=== PATIENT | male | born 1940 | race Caucasian/White ===

== ENCOUNTER 2019-09-14 11:22 | Inpatient (IN) ==
--- NOTE | 2019-09-14 11:42 | EKG Report ---
Test Performed on : 09/14/2019 11:29:50 AM Test Reason : CP Blood Pressure : / mmHG Vent. Rate : 104 BPM Atrial Rate : 104 BPM P-R Int : 136 ms QRS Dur : 088 ms QT Int : 354 ms P-R-T Axes : 040 -14 085 degrees QTc Int : 465 ms Sinus tachycardia. Possible Left atrial enlargement Nonspecific ST and T wave abnormality Abnormal ECG When compared with ECG of 22-FEB-2019 12:39, premature ventricular complexes. are no longer present T wave inversion more evident in Lateral leads Unconfirmed Result
[2019-09-14] MEDS ORDERED: ZOFRAN IV ONE (11:47)
[2019-09-14] MEDS ORDERED: DUONEB (A & A) INH ONE (11:47)
[2019-09-14] MEDS ORDERED: LEVAQUIN 750 MG/D5W 750 MG/150 ML IVPB IV ONE (11:47)
[2019-09-14] MEDS ORDERED: NS 1,000 ML IV ONE (11:47)
[2019-09-14] MEDS ORDERED: MORPHINE IV ONE (11:47)
[2019-09-14] MEDS ORDERED: SOLU-MEDROL IV ONE (11:47)
[2019-09-14] MEDS ORDERED: ASPIRIN PO ONE (11:48)
[2019-09-14 12:16] LABS: BASO# 0.03 X1000 (0.0-0.2); BASO% 0.3 % (0.0-0.8); EOS# 0.14 X1000 (0.0-0.7); EOS% 1.3 % (0.0-10.0); HEMATOCRIT 45.7 % (42.0-52.0); LYMPH# 1.39 X1000 (1.2-3.4); LYMPH% 12.7 % (20.5-51.1); MCH 27.7 PG (27-31); MCHC 32.8 g/dL (33-37); MCV 84.3 FL (81-99); MONO# 0.79 X1000 (0.11-0.59); MONO% 7.2 % (1.7-9.3); MPV 10.9 FL (7.4-10.4); NEUT# 8.59 X1000 (1.4-6.5); NEUT% 78.5 % (42.2-75.2); PLT 256 X1000 (130-400); RBC 5.42 XMIL (4.7-6.1); RDW 14.1 % (11.5-14.5); WBC 10.94 X1000 (4.8-10.8)
[2019-09-14 12:23] LABS: INR 1.02; PROTIME 13.5 Seconds (11.0-16.0)
[2019-09-14 12:31] LABS: MAGNESIUM 1.7 mg/dL (1.5-2.7)
[2019-09-14 12:35] LABS: ALB/GLOB RATIO 1.8; ALBUMIN 4.8 g/dL (3.5-5.0); CALCIUM 9.9 mg/dL (8.8-10.2); CREATININE 1.2 mg/dL (0.7-1.2); POTASSIUM 5.1 mmol/L (3.5-5.1); TOTAL BILIRUBIN 0.49 mg/dL (0.20-1.00); TOTAL PROTEIN 7.5 g/dL (6.3-8.3)
[2019-09-14 13:00] LABS: URINE SOURCE CLEAN CATCH
--- NOTE | 2019-09-14 13:00 | Diag Imaging Result Doc PS360 ---
CHEST-2 VIEWS - 09/14/2019 INDICATION: short of breath, left chest wall pain COMPARISON: 02/22/2019 FINDINGS: There is some atypical appearing interstitial or reticulonodular infiltrate in the right upper lobe. This is persistent and perhaps even worse since prior. Heart size is normal. No pneumothorax or pleural effusion. IMPRESSION: Right upper lobe reticulonodular infiltrates suggesting atypical pneumonia. Atypical mycobacteria should BE considered. Electronically signed by Jeffrey Boyce 09/14/2019 12:57 PM
[2019-09-14 13:03] LABS: BILIRUBIN URINE NEGATIVE (NEGATIVE); BLOOD URINE NEGATIVE (NEGATIVE); COLOR YELLOW; GLUCOSE URINE 100 mg/dL (NEGATIVE); KETONE URINE NEGATIVE (NEGATIVE); LEUKOCYTES URINE NEGATIVE (NEGATIVE); NITRITE URINE NEGATIVE (NEGATIVE); PH URINE 5.5; PROTEIN URINE 70 mg/dL (NEGATIVE); SP GRAVITY URINE 1.021; TURBIDITY URINE CLEAR (CLEAR); UROBILINOGEN URINE NORMAL (NORMAL)
[2019-09-14 13:04] LABS: UR EPITHELIAL CELLS <10 /HPF (<10); URINE BACTERIA NEGATIVE /HPF; URINE RBC <10 /HPF (<10); URINE WBC <10 /HPF (<10)
[2019-09-14] MEDS ORDERED: ZOSYN 4.5 GM in NS 100 ML IV ONE (14:34)
[2019-09-14] MEDS ORDERED: LABETALOL IV ONE (14:40)
--- NOTE | 2019-09-14 14:41 | PROVIDER DOCUMENTATION ---
This chart was entered by Mamta Lauren Scribe, acting as scribe for Sage Tinsley MD. HPI-Respiratory General - General Chief Complaint: SEPSIS ALERT - D Stated Complaint: SOB,COUGHING,CHEST HURTS Time Seen by Provider: 09/14/19 11:32 Source: patient, family (daughter) Allergies/Adverse Reactions: Patient Allergies Allergy/AdvReac Type Severity Reaction Status Date / Time No Known Allergies Allergy Verified 02/22/19 11:50 Home Medications: Home Medication List Medication Instructions Recorded Confirmed Last Taken Type Albuterol Sulfate [Proair Hfa] 90 mcg NEB RTQ4H 09/14/19 09/14/19 Unknown History Budesonide/Formoterol Fumarate 1 puff INH BID 09/14/19 09/14/19 Unknown History [Symbicort 160-4.5 Mcg Inhaler] Omeprazole 40 mg PO QHS 09/14/19 09/14/19 Unknown History Sertraline HCl [Zoloft] 100 mg PO QHS 09/14/19 09/14/19 Unknown History - History of Present Illness-Resp Nature of Presenting Problem: Patient is a 78 year old male who presents with bilateral rib pain. States shor tness of breath and cough with rib pain. Reports symptoms started prior to arrival. Daughter states patient is suppose to be on 3 L of oxygen 26/05. Does not report fever. Patient is a poor historian. Quality of Pain: reports: aching Severity in ED: reports: mild Onset/Duration: reports: just prior to arrival Timing: reports: still present Cough Quality/Degree: reports: moderate, productive cough Associated Symptoms: reports: cough, shortness of breath, other (bilateral rib pain) Similar Symptoms Previously?: No Recently seen or treated by another doctor?: No Review of Systems - Adult - REVIEW OF SYSTEMS - ADULT Constitutional: reports: no symptoms reported. denies: chills, fever, fatique Eyes: reports: no symptoms reported Ears, Nose, Mouth & Throat: reports: no symptoms reported Cardiovascular: reports: no symptoms reported Respiratory: reports: see HPI, cough, shortness of breath. denies: wheezing Gastrointestinal: reports: no symptoms reported Genitourinary: reports: no symptoms reported Musculoskeletal: reports: see HPI, other (bilateral rib pain). denies: back pain, neck pain Integumentary: reports: no symptoms reported Neurological: reports: no symptoms reported Psychiatric: reports: no symptoms reported Endocrine: reports: no symptoms reported Hematologic/Lymphatic: reports: no symptoms reported Allergic/Immunologic: reports: no symptoms reported All Other Systems: Reviewed and Negative Past History - Adult - PAST MEDICAL HISTORY-ADULT Review of Records: reports: Old Records Reviewed, Nursing Assessment Review, Medications Reviewed, Social history reviewed & non-contributory. Major Childhood Illnesses: reports: denies history Cardiovascular: reports: hyperlipidemia Respiratory: reports: COPD Gastrointestinal: reports: denies history Obstetrical/Gynecological: reports: denies history Genitourinary: reports: denies history Musculoskeletal: reports: denies history Neurological: reports: denies history Psychiatric: reports: denies history Endocrine/Immune: reports: denies history Other Conditions: reports: denies history - PRIOR SURGERIES/PROCEDURES Surgical/Procedure History: reports: reviewed, not pertinent, tonsillectomy - IMMUNIZATION STATUS Childhood Immunizations: See Nurse Assessment Flu Vaccine: See Nurse Assessment - FAMILY HISTORY Family History: reviewed, not pertinent - SOCIAL HISTORY Smoking: cigarettes (former) Substance Use: denies Physical Exam-General - PHYSICAL EXAM-ADULT Initial Vital Signs Reviewed: Yes - CONSTITUTIONAL General Appearance: alert, no apparent distress. negative: lethargic - HEAD, EARS, NOSE, MOUTH & THROAT HENMT: normocephalic/atraumatic, moist mucous membranes. negative: angioedema - RESPIRATORY Respiratory: chest non-tender, rhonchi (bilateral bases), wheezing (faint expiratory wheeze), increased rate, other (diminished breath sounds bilaterally) . negative: accessory muscle use - CARDIOVASCULAR Cardiovascular: normal peripheral pulses, tachycardia. negative: systolic murmur - GASTROINTESTINAL (ABDOMEN) Abdominal Exam: normal bowel sounds, soft, tenderness (LUQ). negative: guarding, rebound - MUSCULOSKELETAL Extremity: normal inspection. negative: erythema, pedal edema - SKIN Integumentary: normal turgor, mottled (generalized), other (cool to touch). negative: diaphoresis, ecchymosis - NEUROLOGIC Neurologic: grossly normal. negative: aphasia, facial droop - PSYCHIATRIC Psych/Mental Status: normal mood/affect, oriented x 3. negative: anxious Progress - PLAN OF CARE/RESULTS Progress/Plan/Lab Results: Vital Signs - 8 hr 09/14/19 11:29 09/14/19 11:42 09/14/19 11:45 Pulse Rate 105 H 109 H 104 H Respiratory Rate 24 24 28 H Blood Pressure 198/97 241/119 O2 Sat by Pulse Oximetry 95 98 98 09/14/19 11:46 09/14/19 12:00 09/14/19 12:03 Pulse Rate 103 H 97 H 93 H Respiratory Rate 32 H 31 H 20 Blood Pressure O2 Sat by Pulse Oximetry 98 98 96 09/14/19 13:08 09/14/19 13:12 09/14/19 13:15 Pulse Rate 110 H 102 H 104 H Respiratory Rate 18 27 H 21 Blood Pressure 177/118 219/93 213/105 O2 Sat by Pulse Oximetry 97 97 96 09/14/19 13:17 09/14/19 13:30 09/14/19 13:31 Pulse Rate 102 H 100 H 105 H Respiratory Rate 33 H 20 28 H Blood Pressure 213/96 200/132 O2 Sat by Pulse Oximetry 97 97 92 L 09/14/19 13:45 09/14/19 13:46 09/14/19 14:00 Pulse Rate 103 H 103 H 103 H Respiratory Rate 26 H 16 30 H Blood Pressure 201/101 O2 Sat by Pulse Oximetry 98 97 95 09/14/19 14:02 Pulse Rate 103 H Respiratory Rate 30 H Blood Pressure 201/93 O2 Sat by Pulse Oximetry 97 09/14/19 12:42 Influenza Screen - Final Nasopharyngeal Laboratory Results - last 24 hr 09/14/19 09/14/19 09/14/19 12:01 12:01 12:01 WBC 10.94 H RBC 5.42 Hgb 15.0 Hct 45.7 MCV 84.3 MCH 27.7 MCHC 32.8 L RDW Std Deviation 14.1 Plt Count 256 MPV 10.9 H Immature Gran % (Auto) 0.0 Neut % (Auto) 78.5 H Lymph % (Auto) 12.7 L [place] % (Auto) 7.2 Eos % (Auto) 1.3 Baso % (Auto) 0.3 Immature Gran # (Auto) 0.00 Neut # (Auto) 8.59 H Lymph # (Auto) 1.39 Hanson # (Auto) 0.79 H Eos # (Auto) 0.14 Baso # (Auto) 0.03 PT INR PTT (Actin FS) Sodium 139 Potassium 5.1 Chloride 99 Carbon Dioxide 26 Anion Gap 14 BUN 17 Creatinine 1.2 Estimated GFR/1.73 m2 59 BUN/Creatinine Ratio 14 Glucose 184 H Calculated Osmolality 284 Calcium 9.9 Magnesium Total Bilirubin 0.49 AST 23 ALT 19 Alkaline Phosphatase 109 Creatine Kinase 85 Troponin T Fwq-S-Mihduusrqxs Pept Total Protein 7.5 Albumin 4.8 Globulin 2.7 Albumin/Globulin Ratio 1.8 Lipase Plasma Lactate 2.5 H Urine Source Urine Color Urine Turbidity Urine pH Ur Specific [place] Urine Protein Ur Glucose (Stick) Ur Ketones (Stick) Urine Blood Urine Nitrite Urine Bilirubin Urobilinogen Dipstick Urine Leukocytes Urine WBC (Auto) Urine RBC (Auto) U Epithel Cells (Auto) Urine Bacteria (Auto) 09/14/19 09/14/19 09/14/19 12:01 12:01 12:01 WBC RBC Hgb Hct MCV MCH MCHC RDW Std Deviation Plt Count MPV Immature Gran % (Auto) Neut % (Auto) Lymph % (Auto) [place] % (Auto) Eos % (Auto) Baso % (Auto) Immature Gran # (Auto) Neut # (Auto) Lymph # (Auto) [place] # (Auto) Eos # (Auto) Baso # (Auto) PT 13.5 INR 1.02 PTT (Actin FS) 27.0 Sodium Potassium Chloride Carbon Dioxide Anion Gap BUN Creatinine Estimated GFR/1.73 m2 BUN/Creatinine Ratio Glucose Calculated Osmolality Calcium Magnesium 1.7 Total Bilirubin AST ALT Alkaline Phosphatase Creatine Kinase Troponin T 0.030 [id number]-Knvzzvqkdxp Pept Total Protein Albumin Globulin Albumin/Globulin Ratio Lipase 73 H Plasma Lactate Urine Source Urine Color Urine Turbidity Urine pH Ur Specific [place] Urine Protein Ur Glucose (Stick) Ur Ketones (Stick) Urine Blood Urine Nitrite Urine Bilirubin Urobilinogen Dipstick Urine Leukocytes Urine WBC (Auto) Urine RBC (Auto) U Epithel Cells (Auto) Urine Bacteria (Auto) 09/14/19 09/14/19 12:01 12:42 WBC RBC Hgb Hct MCV MCH MCHC RDW Std Deviation Plt Count MPV Immature Gran % (Auto) Neut % (Auto) Lymph % (Auto) [place] % (Auto) Eos % (Auto) Baso % (Auto) Immature Gran # (Auto) Neut # (Auto) Lymph # (Auto) [place] # (Auto) Eos # (Auto) Baso # (Auto) PT INR PTT (Actin FS) Sodium Potassium Chloride Carbon Dioxide Anion Gap BUN Creatinine Estimated GFR/1.73 m2 BUN/Creatinine Ratio Glucose Calculated Osmolality Calcium Magnesium Total Bilirubin AST ALT Alkaline Phosphatase Creatine Kinase Troponin T Fya-U-Pkmuxxgnyqj Pept 22 Total Protein Albumin Globulin Albumin/Globulin Ratio Lipase Plasma Lactate Urine Source CLEAN CATCH Urine Color YELLOW Urine Turbidity CLEAR Urine pH 5.5 Ur Specific [place] 1.021 Urine Protein 70 A Ur Glucose (Stick) 100 A Ur Ketones (Stick) NEGATIVE Urine Blood NEGATIVE Urine Nitrite NEGATIVE Urine Bilirubin NEGATIVE Urobilinogen Dipstick NORMAL Urine Leukocytes NEGATIVE Urine WBC (Auto) <10 Urine RBC (Auto) <10 U Epithel Cells (Auto) <10 Urine Bacteria (Auto) NEGATIVE Orders Category Date Time Status Cardiac Monitoring DIRECTED Care 09/14/19 11:38 Active IV Insertion ORDERED Care 09/14/19 11:38 Completed Notify MD of + Sepsis Screen NOW Care 09/14/19 11:38 Active Notify Physician As Ordered Care 09/14/19 11:38 Active CHEST-2 VIEWS [RAD] Stat Exams 09/14/19 11:47 Completed BLOOD CULTURE [BLDCUL] Stat Lab 09/14/19 12:57 Results CBC WITH DIFF [HEME] Stat Lab 09/14/19 12:01 Completed CK PROFILE [SP CHEM] Stat Lab 09/14/19 12:01 Completed COMPREHENSIVE METABOLIC PANEL [CHEM] Stat Lab 09/14/19 12:01 Completed INFLUENZA SCREEN A/B Stat Lab 09/14/19 12:42 Completed LACTATE, PLASMA [CHEM] Q3H Lab 09/14/19 12:01 Completed LACTATE, PLASMA [CHEM] Q3H Lab 09/14/19 14:45 Uncollected LACTATE, PLASMA [CHEM] Q3H Lab 09/14/19 17:45 Uncollected LIPASE [CHEM] Stat Lab 09/14/19 12:01 Completed MAGNESIUM [CHEM] Stat Lab 09/14/19 12:01 Completed PRO B-NATRIURETIC PEPTIDE Stat Lab 09/14/19 12:01 Completed PROTIME WITH INR [COAG] Stat Lab 09/14/19 12:01 Completed PTT [COAG] Stat Lab 09/14/19 12:01 Completed TROPONIN T Stat Lab 09/14/19 12:01 Completed URINALYSIS W/POSS RFLX CULT [URINALYSIS] Stat Lab 09/14/19 12:42 Completed 0.9% Sodium Chloride Inj [Ns] 1,000 ml Med 09/14/19 11:47 Discontinued IV 999 mls/hr Albuterol 2.5MG/Ipratrop 0.5MG [Duoneb (A & A)] Med 09/14/19 11:47 Disc ontinued 9 ml INH NOW ONE Aspirin Med 09/14/19 11:48 Discontinued 325 mg PO NOW ONE Levofloxacin 750 mg/D5w [Levaquin 750 mg/D5w] Med 09/14/19 11:47 Discontinued 750 mg in 150 ml IV NOW Methylprednisolone Sod Succ [Solu-Medrol] Med 09/14/19 11:47 Discontinued 125 mg IV NOW ONE Morphine Med 09/14/19 11:47 Discontinued 2 mg IV NOW ONE Ondansetron [Zofran] Med 09/14/19 11:47 Discontinued 4 mg IV NOW ONE Piperacillin/Tazobactam [Zosyn] 4.5 gm Med 09/14/19 14:34 Discontinued 0.9% Sodium Chloride Inj [Ns] 100 ml IV NOW Aerosol Treatments Routine Oth 09/14/19 11:47 Completed Aerosol Treatments Stat Oth 09/14/19 11:47 Completed Oxygen Device Stat Oth 09/14/19 11:38 Active EKG [EKG] Stat Ther 09/14/19 11:39 Draft Result Diagrams: 09/14/19 12:01 09/14/19 12:01 - REASSESSMENT Reassessment #1 Time Reassessed: 14:36 Status: improving (Patient has community acquired pneumonia with sepsis, and he has been given duonebs, IV solumedrol, IV levaquin 750mg, IV morphine and zofran. Also given 1 aspirin) - EKG 1 Time of EKG reading by physician:: 11:29 EKG Read and Signed by:: Sage Tinsley EKG Interpretation (*Must complete 3 of following elements*): Abnormal Rate: 104 Rhythm: sinus tachycardia [place]: normal [place] Interval: normal Comments: possible left atrial enlargement; nonspecific ST and T wave abnormality. - XRAY 1 XRAY Study: Chest Impression: See EMR Report (Signed CHEST-2 VIEWS - 09/14/2019 INDICATION: short of breath, left chest wall pain COMPARISON: 02/22/2019 FINDINGS: There is some atypical appearing interstitial or reticulonodular infiltrate in the right upper lobe. This is persistent and perhaps even worse since prior. Heart size is normal. No pneumothorax or pleural effusion. IMPRESSION: Right upper lobe reticulonodular infiltrates suggesting atypical pne umonia. Atypical mycobacteria should BE considered. Electronically signed by Jeffrey Boyce 09/14/2019 12:57 PM 09/14/19 1257 Interpreting Physician: Jeffrey Boyce MD Dictated Date/Time: 09/14/19 1256 cc: Sage Tinsley MD; Jessika Pichardo MD) - CONSULTS/PCP/HOSPITALIST Notification #1 *Consult/PCP/Hospitalist*: KELLIE Wilson paged at 1430 Time Discussed: 14:40 Reason/Comments: admit to [facility] Consult Disposition: Will see in ED Departure - Departure Date of Disposition Decision: 09/14/19 Time of Disposition Decision: 14:37 DIAGNOSIS: Community acquired pneumonia due to Mycoplasma pneumoniae, COPD with exacerbation, Elevated blood pressure, situational Sepsis without acute organ dysfunction Qualifiers: Sepsis type: sepsis due to unspecified organism Qualified Code(s): A41.9 - Sepsis, unspecified organism Chest pain Qualifiers: Chest pain type: chest pain on breathing Qualified Code(s): R07.1 - Chest pain on breathing; R07.81 - Pleurodynia Disposition: ADMITTED INPATIENT 09 Certified Medical Emergency: Emergent Condition: Fair Referrals and Follow-Ups: Jessika Pichardo MD [Primary Care Provider] - - Critical Care Note This patient required my direct & personal management of CC.: Yes Total Time (mins): 38 (evaluation for sepsis/chest pain) Critical Care Statement: This patient required my direct personal management to treat or rule out processes, the absence of which, could potentiallly result in sudden, clinically significant life or limb threatening deterioration. Attestation - Physician/ LENY Attestation Patient care was provided by Advanced Practice Provider:: No The physician spent face to face time with patient:: Yes Advanced Practice Provider documentation review:: Supervising physician onsite and consulted in the evaluation and care of this patient. The physician did have a face to face encounter with the patient. This chart was documented by the indicated scribe, (Mamta Lauren Scribe) and accurately reflects the services I performed and decisions made by me, Sage Tinsley MD, as attested by the provider's signature.
[2019-09-14] MEDS ORDERED: CATAPRES PO ONE (14:57)
[2019-09-14] MEDS ORDERED: TYLENOL PO PRN (16:15)
[2019-09-14] MEDS ORDERED: DUONEB (A & A) INH PRN (16:15)
[2019-09-14] MEDS ORDERED: APRESOLINE IV PRN (16:15)
[2019-09-14] MEDS: DUONEB (A & A) INH SCH ×3 (16:46→23:21)
[2019-09-14] MEDS ORDERED: MORPHINE IV PRN (17:16)
[2019-09-14] MEDS: NS 1,000 ML IV SCH (17:20)
[2019-09-14] MEDS: CATAPRES PO SCH (17:25)
[2019-09-14] MEDS: SYMBICORT 160/4.5 MICROGM INHALER INH SCH (18:56)
--- NOTE | 2019-09-14 19:11 | PROGRESS NOTE ---
DATE: 09/14/2019 ADDENDUM: I have seen and examined Mr. Finn today. He refers to be doing a little better since he got the nebulization. Mr. Finn presented to the emergency room today because of shortness of breath. He was found to be saturating at some point at 92%. He is supposed to be on home 2 oxygen too but has been asked to bump it up to 3 lately. CURRENT PHYSICAL EXAM: remarkable for a barrel chest. Air entry is bilaterally reduced. There is prolonged expiratory phase of respiration with diffuse expiratory wheezing. DIAGNOSTIC STUDIES: His chest x-ray showed right upper lobe reticulonodular infiltrate suggesting atypical pneumonia. Atypical mycobacterial should be considered. ASSESSMENT: 1. Acute on chronic hypoxemic respiratory failure. 2. Acute bronchospasm, most likely due to chronic obstructive pulmonary disease exacerbation. 3. Right upper lobe reticulonodular infiltrate suggesting atypical pneumonia. Atypical mycobacteria has also been suggested to be ruled out. We will get a CT scan to have a better anatomy of the lungs. We will also get a sputum culture and QuantiFERON testing. 4. History of chronic obstructive pulmonary disease on home 2 oxygen and in current exacerbation. 5. Diabetes mellitus on oral hypoglycemic agent. We will check on the A1c and put him on insulin regimen while he is in the hospital. Please refer to the details of the history and physical which has been dictated by the CRIMINALIST in the chart. cc: Ryan Fitzpatrick MD
--- NOTE | 2019-09-14 19:59 | HISTORY AND PHYSICAL ---
PRIMARY CARE PROVIDER: Dr. Jessika Pichardo. CHIEF COMPLAINT: Shortness of breath, coughing, with rib pain. HISTORY OF PRESENT ILLNESS: Mr. Finn is a 78-year-old gentleman, who carries a past medical history of COPD, hypertension, diabetes mellitus, hyperlipidemia, COPD, who came to the ED complaining of bilateral rib pain, shortness of breath and wheezing, and a productive cough, who believes he had some low-grade fever and chills. He reports that it had been ongoing for about 2 weeks, but did not tell his daughter until today. He is supposed to wear 3 L of oxygen at home 26/05. Workup in the ED with a chest x-ray showed an atypical pneumonia. He was in COPD exacerbation with a positive lactate. He was given a liter of fluid bolus, started on IV Levaquin, high-dose steroids and bronchodilators, and continued on supplemental O2. He was also found to be hypertensive. He was given a dose of IV labetalol. We will give him a dose of Klonopin now and place him on IV Apresoline q.4 hours, and watch him closely in PVC overnight. PAST MEDICAL HISTORY: 1. COPD. 2. Hypertension. 3. Hyperlipidemia. 4. Diabetes mellitus. PAST SURGICAL HISTORY: Tonsillectomy. FAMILY HISTORY: Noncontributory. SOCIAL HISTORY: He lives with his daughter. I believe he quit smoking over a year ago. He does have home health and home O2. ALLERGIES: No known drug allergies. HOME MEDICATIONS: Continuing to be compiled. What they have so far is: 1. ProAir. 2. Symbicort. 3. Prilosec. 4. Zoloft. REVIEW OF SYSTEMS: A 12 point review of systems is completely negative except for those mentioned in HPI. PHYSICAL EXAMINATION: VITAL SIGNS: Temperature is 98.3 degrees, heart rate 75, respirations 22, blood pressure initially was 198/200s over 100s/90s. He is 182/76, at 96% on 4 L. GENERAL: Mr. Finn is a pleasant, 78-year-old male who is sitting on the stretcher in no acute distress. States that he is now feeling better. HEENT: Atraumatic, normocephalic. PERRL. NECK: Supple. Trachea midline. CARDIOVASCULAR: S1, S2 appreciated. No murmurs, gallops, or rubs noted. RESPIRATORY: Lung sounds relatively clear bilaterally. Did not appreciate any rales, rhonchi, or wheezes. GI: Soft, nontender, nondistended. Positive bowel sounds 4 quads.. EXTREMITIES: Lower extremities were negative for edema. NEUROLOGIC: No focal deficits noted. DIAGNOSTIC DATA: Chest x-ray showed a right upper lobe infiltrate suggestive of an atypical pneumonia. LABORATORY DATA: White count of 10, hemoglobin and hematocrit of 15 and 45, platelet count of 256,000. Sodium 139, potassium 5.1, BUN 17, creatinine of 1.2, blood glucose is 184, magnesium 1.7, troponin 0.030. Initial lactate was 2.5. Followup after bolus 2.0. Urinalysis is negative. ASSESSMENT AND PLAN: 1. Atypical pneumonia. The patient will be treated with intravenous Levaquin. We will continue with supplemental oxygen, bronchodilators, aggressive pulmonary toilet. We will obtain a sputum culture. Blood cultures have been obtained. Continue with intravenous fluids. 2. Chronic obstructive pulmonary disease exacerbation. We will continue with supplemental oxygen, bronchodilators, intravenous steroids, aggressive pulmonary toilet. 3. Hypertensive urgency. The patient did receive labetalol and p.o. clonidine. We will place him on p.r.n. Apresoline. The daughter is going to go home and get his home medication list. She could not remember the name of his home medications, as well as place him on Catapres t.i.d. 4. Diabetes mellitus. We will place him on sliding scale with patterned blood sugars. 5. Sepsis rule in. The patient was given a liter bolus. His lactate is back to normal. 6. Probable Dementia Further recommendations to follow physician evaluation, laboratory and diagnostic data. Dictated by EKLLIE Levine for Ryan Fitzpatrick MD cc: Ryan Fitzpatrick MD [facility]ITAL[facility]
[2019-09-14] MEDS: ZOLOFT PO SCH (21:34)
[2019-09-14] MEDS: SOLU-MEDROL IV SCH (21:34)
[2019-09-14] MEDS: PRILOSEC PO SCH (21:34)
[2019-09-14] MEDS: HUMALOG SUBQ SCH (21:35)
[2019-09-15] MEDS: DUONEB (A & A) INH SCH ×6 (03:20→23:33)
[2019-09-15] MEDS: SOLU-MEDROL IV SCH ×3 (04:09→20:18)
[2019-09-15 06:01] LABS: HEMOGLOBIN A1C 7.3 % (4.8-6.0)
[2019-09-15 06:08] LABS: HEMATOCRIT 41.1 % (42.0-52.0); HEMOGLOBIN 13.3 g/dL (14.0-18.0); IMM GRAN# 0.02 X1000 (0.0-0.04); IMM GRAN% 0.2 % (0.0-0.5); LYMPH# 0.62 X1000 (1.2-3.4); LYMPH% 6.6 % (20.5-51.1); MCH 27.7 PG (27-31); MCHC 32.4 g/dL (33-37); MCV 85.4 FL (81-99); MONO# 0.26 X1000 (0.11-0.59); MONO% 2.8 % (1.7-9.3); MPV 10.9 FL (7.4-10.4); NEUT# 8.51 X1000 (1.4-6.5); NEUT% 90.4 % (42.2-75.2); PLT 226 X1000 (130-400); RBC 4.81 XMIL (4.7-6.1); RDW 13.9 % (11.5-14.5); WBC 9.41 X1000 (4.8-10.8)
[2019-09-15] MEDS: NS 1,000 ML IV SCH (06:15)
[2019-09-15] MEDS: HUMALOG SUBQ SCH ×4 (06:15→22:02)
[2019-09-15 06:43] LABS: ALB/GLOB RATIO 1.9; ALBUMIN 4.1 g/dL (3.5-5.0); CALCIUM 8.9 mg/dL (8.8-10.2); CREATININE 1.2 mg/dL (0.7-1.2); POTASSIUM 4.7 mmol/L (3.5-5.1); TOTAL BILIRUBIN 0.51 mg/dL (0.20-1.00); TOTAL PROTEIN 6.3 g/dL (6.3-8.3)
[2019-09-15] MEDS: SYMBICORT 160/4.5 MICROGM INHALER INH SCH ×2 (07:35→20:14)
[2019-09-15 08:07] LABS: LYMPHS 12 % (21-51); MONO 2 % (1-9); SEGS 86 % (42-75)
[2019-09-15] MEDS: CATAPRES PO SCH ×3 (08:47→16:37)
--- NOTE | 2019-09-15 12:27 | Diag Imaging Result Doc PS360 ---
EXAM: CT THORAX W/CONTRAST INDICATION: suspected atypical lung infection TECHNIQUE: This exam was performed using automated exposure control, adjustment of mA or kV according to patient size, and/or use of iterative reconstruction technique. COMPARISON: None. FINDINGS: There is fairly advanced pulmonary emphysema. There are numerous masses scattered throughout the right lung involving all of the right lung lobes. Almost all of these are situated along the pleural surface. The largest is a pleural-based mass that is at the posterior aspect of the right upper lobe on image 31 of series 2. It is significantly eroding the adjacent fourth rib. It measures 3.9 x 2.5 cm axially. Another mass at the right lung base measures up to 1.6 x 1.3 cm axially. These lesions are highly consistent with malignant neoplasm. There are a few calcified granulomata in the left lung. There is no pleural fluid collection and no pneumothorax. There are several enlarged lymph nodes in the anterior aspect of the mediastinum, the right hilum, and the subcarinal region that are assumed to be malignant. Limited views of the upper abdomen are essentially unremarkable. Aside from the erosion of the posterior aspect of the fourth rib on the right discussed above, there is nothing to suggest bony metastatic disease. IMPRESSION: 1.Numerous masses throughout the right lung with almost all abutting the pleural surfaces with right hilar and mediastinal lymphadenopathy. This is highly consistent with malignant neoplasm. Please see above discussion. 2.Pulmonary emphysema. 3.Erosion of the posterior aspect of the fourth rib on the right by an adjacent pleural-based mass. Electronically signed by Nino Perez 09/15/2019 12:25 PM
[2019-09-15] MEDS: LEVAQUIN 750 MG/D5W 750 MG/150 ML IVPB IV SCH (14:13)
--- NOTE | 2019-09-15 14:28 | PROGRESS NOTE ---
DATE: 09/15/2019 SUBJECTIVE: This morning, Mr. Finn referred to be doing a lot better. According to him, his breathing has significantly improved and he was not coughing. OBJECTIVE: Vital Signs: Blood pressure is 163/76, pulse of 100, respiration is 18, temperature 98.1 degrees. General: Mr. Finn is a 78-year-old elderly male. He is in bed. No distress. Mucosa is pink and moist. Anicteric. Acyanotic. Neck: Neck is supple. Chest: Air entry was bilaterally reduced. There is some end expiratory wheezing in both lung bain. Cardiovascular: Regular rate and rhythm but there is a 2/6 murmur radiating to the neck. Gastrointestinal: Abdomen was soft, nontender. Bowel sounds present. Extremities: No pedal edema. Central Nervous System: Patient was awake, alert, and oriented. LABORATORY DATA: WBC is down to 9.41, hemoglobin is 13.3, platelet count of 226,000. Chemistry is also reviewed, unremarkable. Glucose is 271. Patient's A1c is 7.3. So far, blood cultures have been unremarkable. Influenza screening is negative. A chest x-ray which was done yesterday shows right upper lobe reticulonodular infiltrate suggesting atypical pneumonia. A CT scan which was done to follow up shows pulmonary emphysema, numerous masses throughout the right lung with almost all abutting the pleural surfaces with right hilar and mediastinal lymphadenopathy. This is highly suggestive with malignant neoplasm. ASSESSMENT: 1. Acute on chronic hypoxemic respiratory failure, most likely due to chronic obstructive pulmonary disease exacerbation. 2. Chronic obstructive pulmonary disease in moderate exacerbation. Patient is on antibiotics, steroids and bronchodilation therapy. 3. Right hilar and mediastinal lymphadenopathy with numerous masses to the right lung concerning for malignant neoplasm. We will get will get Pulmonary Medicine to evaluate for possible bronchoscopy. We will also check a CEA and a CT scan of abdomen and pelvis. 4. History of diabetes mellitus with presenting A1c of 7.3. For now, we are going to continue insulin management. The patient will be put back on his oral hypoglycemic agent on discharge. 5. Chronic hypoxemia on home 2 oxygen noted. In general, Mr. Finn's bronchospasm has significantly improved. His current CT scan of the lungs has shown some concern for malignancy, so we will get Pulmonary Medicine to evaluate him and then go from there. Please refer to the details of the progress note which has been written up by the medical student. cc: Ryan Fitzpatrick MD
[2019-09-15] MEDS: PRILOSEC PO SCH (20:18)
[2019-09-15] MEDS: ZOLOFT PO SCH (20:18)
[2019-09-16] MEDS: DUONEB (A & A) INH SCH ×6 (03:11→23:33)
[2019-09-16] MEDS: SOLU-MEDROL IV SCH ×3 (03:44→21:17)
[2019-09-16 06:35] LABS: CALCIUM 8.9 mg/dL (8.8-10.2); CREATININE 1.3 mg/dL (0.7-1.2); POTASSIUM 4.8 mmol/L (3.5-5.1)
[2019-09-16] MEDS: HUMALOG SUBQ SCH ×3 (06:45→21:18)
[2019-09-16] MEDS: SYMBICORT 160/4.5 MICROGM INHALER INH SCH ×2 (07:37→19:27)
[2019-09-16] MEDS: CATAPRES PO SCH ×4 (08:24→21:17)
--- NOTE | 2019-09-16 08:32 | PULMONOLOGY CONSULTATION ---
DATE: 09/15/2019 REQUESTING CLINICIAN: Dr. Fitzpatrick. REASON FOR CONSULTATION: Lung masses. HISTORY OF PRESENT ILLNESS: Mr. Finn is a 78-year-old male with a 39-aavf-dxem history for tobacco (nonsmoker x20 years), who reports that he was in [facility] about 2 months ago with pneumonia. He has done relatively well since that time, but developed anterior chest wall pain, which increased with cough. The patient has a long history of COPD, and has been on oxygen for many years. He presented to the emergency room, and was significantly hypertensive. A chest x-ray was performed, which revealed possible atypical infection. CT scan of the thorax was performed, which revealed multiple masses throughout the right lung, with one in the right upper lobe eroding through a rib. PAST MEDICAL HISTORY/PROBLEM LIST: 1. Severe COPD with chronic hypoxemic respiratory failure. 2. Diabetes mellitus. 3. Hypertension. 4. Dyslipidemia. 5. Status post cholecystectomy. SOCIAL HISTORY: The patient is a . He lives with his daughter. No alcohol or tobacco use. FAMILY HISTORY: Noncontributory to current presentation. REVIEW OF SYSTEMS: Notable for increasing shortness of breath, chest wall pain, and fatigue. PHYSICAL EXAMINATION: General: A well-developed, well-nourished male, resting comfortably in no distress. Vital Signs: The patient has been afebrile for the last 24 hours, blood pressure 131/53, heart rate 81, respiratory rate 18, oxygen saturation 98% on 3 L. HEENT: Pupils are equal and reactive. Oropharynx is clear. Neck: Supple. Chest: Prolonged expiratory phase bilaterally, without wheezing or rhonchi. Cardiac: S1, S2. Abdomen: Soft. Extremities: Trace edema. IMAGING AND LABORATORY DATA: CT scan as per HPI. INR is 1.0. Sodium 139, potassium 4.7, chloride 97, bicarbonate 21, BUN 22, creatinine 1.2, glucose 273. Carcinoembryonic antigen 331.3. IMPRESSION: A 78-year-old with stage IV lung cancer with metastatic nodules in several lobes in the right lung. The patient's CEA is elevated, and one tumor is eroding a node. With his history, this is consistent with advanced stage IV lung cancer. RECOMMENDATIONS: 1. Proceed with CT-guided biopsy. I will let the radiologist review his scan and pick the most accessible lesion. 2. Await biopsy results, and consider Oncology evaluation for palliative chemotherapy. cc: Yehuda Alaniz MD
[2019-09-16] MEDS ORDERED: LASIX IV STA (10:45)
--- NOTE | 2019-09-16 10:50 | Diag Imaging Result Doc PS360 ---
EXAM: CT ABD/PELVIS W/IV CONT ONLY 09/16/2019 HISTORY: metastatic disease to lungs. looking for primary TECHNIQUE: This exam was performed using automated exposure control, adjustment of mA or kV according to patient size, and/or use of iterative reconstruction technique. COMMENT: There are no previous abdominal studies available for comparison. Where possible comparison is made with the thoracic study of 09/15/2019. There appears to be some interstitial opacity in the lung bases which was not previously the case. There our small bilateral pleural effusions which were not present on the previous examination. This exam was performed previous to the lung biopsy. The spleen and adrenal glands are not enlarged. There is dilatation of the infrarenal portion of the aorta with a maximum AP diameter of 3.4 cm. There is a second area of dilatation in the inferior abdominal aorta with a maximum AP diameter of 3.7 cm. There is a fair amount of noncalcified plaque and/or mural thrombus throughout much of the inferior abdominal aorta. There are calcifications with possible ostial stenosis in the right renal artery and there are calcifications of the peripheral portions of both renal arteries. The celiac and superior mesenteric arteries are patent. There is a nodule in the anterior inferior mediastinum adjacent to the right ventricle and pericardium on image one of the arterial series. This was also demonstrated on the previous thoracic study. It measures 2.3 cm in AP diameter. There is no significant retroperitoneal adenopathy. There is some stool throughout the colon. The small bowel is not distended. There has been cholecystectomy. There are some granulomata present in the liver, otherwise the liver is unremarkable. There is a dense calcification in the inferior portion of the spleen which may be due to previous trauma or infection. There is no evidence of hydronephrosis or solid renal mass. There is a tiny cortical cyst in the anterior upper mid left renal cortex. Pelvis: The appendix is normal in appearance. There is diverticulosis in the sigmoid colon without evidence of acute diverticulitis. The urinary bladder is unremarkable. There is a fat-containing right inguinal hernia. There is no evidence of free fluid. No significant adenopathy is present. There is ankylosis of the right sacroiliac joint. There are degenerative disc changes in the lumbar spine with a moderate degree of spinal stenosis at the L4-5 level. IMPRESSION: Anterior cardiophrenic angle adenopathy on the right. Bilateral pleural effusions. Multiple pulmonary nodules as previously described on 09/15/2019. Pulmonary edema and pleural effusions were not present at the time of the previous study yesterday. Abdominal aortic aneurysm and atherosclerotic changes. Other nonacute findings as described above. No evidence of metastatic disease in the abdomen or pelvis. Electronically signed by Andrew Dang 09/16/2019 10:48 AM
--- NOTE | 2019-09-16 10:52 | Diag Imaging Result Doc PS360 ---
EXAM: CHEST-2 VIEWS 09/16/2019 HISTORY: POST BIOPSY RIGHT LUNG TECHNIQUE: Inspiratory expiratory sitting upright AP COMMENT: There is no evidence of pneumothorax. There is considerable increase in interstitial markings in both lungs compared to 09/14/2019. The heart size is not particularly enlarged. IMPRESSION: Pulmonary edema. This may be superimposed on right upper lobe pneumonia. The findings were discussed with Yehuda Alaniz M.D. at 09/16/2019 10:40 AM. Electronically signed by Andrew Dang 09/16/2019 10:49 AM
--- NOTE | 2019-09-16 10:54 | Diag Imaging Result Doc PS360 ---
EXAM: CT GUIDED BIOPSY LUNG 09/16/2019 HISTORY: lung masses TECHNIQUE: CT-guided biopsy of right chest wall/pleural-based nodule. COMMENT: The larger posterior pleural-based or chest wall mass which was demonstrated on the CT of 09/15/2019 associated with erosive changes of the posteromedial fourth rib was selected for biopsy. The risks and benefits of the procedure including the possibility of bleeding, infection, reaction to lidocaine, or pneumothorax was discussed with the patient's daughter and she agreed to the procedure. Following sterile preparation of the skin posteriorly and administration 1% lidocaine to the skin and deeper soft tissues, an 18-gauge coaxial Temno core biopsy needle was employed to obtain three cores from the lesion. There are no immediate complications. IMPRESSION: Successful CT-guided biopsy. Electronically signed by Andrew Dang 09/16/2019 10:52 AM
[2019-09-16] MEDS ORDERED: SOLU-MEDROL IV ONE (11:13)
[2019-09-16] MEDS ORDERED: MORPHINE IV ONE (11:14)
--- NOTE | 2019-09-16 13:56 | PROGRESS NOTE ---
DATE: 09/16/2019 SUBJECTIVE: Today Mr. Finn referred to be doing a little better. He just came from his CT- guided pulmonary biopsy and he started having some more difficulty breathing and wheezing. OBJECTIVE: Vital signs: Blood pressure is 152/75, pulse 92, respiration 17, temperature is 98.2 degrees. General: Mr. Finn is a 78-year-old gentleman. He is in bed. He seems to be in mild respiratory distress. HEENT: Mucosa is pink and moist. Anicteric. Acyanotic. Neck: Supple. Chest: Air entry is bilaterally reduced. There is diffuse wheezing everywhere both in inspiration and expiration. No crackles. Cardiovascular: Slightly tachycardic. There is a 2/6 murmur. GI: Abdomen is soft. Extremities: No pedal edema. 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 No focal deficit. LABORATORY DATA: Chemistry is reviewed. Creatinine had gone up slightly to 1.2. ASSESSMENT: 1. Acute on chronic hypoxemic respiratory failure. 2. Acute bronchospasm after the lung biopsy. I understand a follow-up chest x- ray did not show any complications. I think this is probably a combination of pulmonary edema and chronic obstructive pulmonary disease exacerbation. He is getting is 80 mg of IV Lasix. He will be on bronchodilation therapy, antibiotics and steroids. 3. Right hilar and mediastinal lymphadenopathy with numerous masses dispersed in the right lung concerning for malignant neoplasm. Elevated CEA as well. The patient has is status post biopsy, will be pending on the official report. We will also get Heme-Onc to evaluate him. A CT scan of the abdomen and pelvis was unremarkable. 4. Diabetes mellitus with presenting A1c of 7.3 noted. Patient is on insulin regimen. 5. Chronic hypoxemia on home oxygen therapy. So in general I think . Mr. Finn went into acute bronchospasm after the procedure, which could be a combination of fluid and chronic obstructive pulmonary disease exacerbation. He is getting Lasix and we will continue with the chronic obstructive pulmonary disease management. We will also follow up with a repeat chest x-ray in about 4 hours. cc: Ryan Fitzpatrick MD [facility]ARE SYSTEMDeniz
[2019-09-16] MEDS: LANTUS INSULIN SUBQ SCH (18:09)
--- NOTE | 2019-09-16 18:19 | Diag Imaging Result Doc PS360 ---
EXAM: CHEST-PORTABLE 09/16/2019 HISTORY: dyspnea TECHNIQUE: AP portable upright at 1758 COMMENT: There is ill-defined opacity in the right upper lobe which was also present on 09/16/2019. Compared to 02/22/2019 the inspiration is not as optimal but there was a similar appearance in the right upper lobe. Overall there is less interstitial opacity than on the previous examination. IMPRESSION: Improved pulmonary edema. Electronically signed by Andrew Dang 09/16/2019 6:17 PM
[2019-09-16] MEDS ORDERED: LASIX IV ONE (20:39)
[2019-09-16] MEDS: LEVAQUIN 750 MG/D5W 750 MG/150 ML IVPB IV SCH (21:16)
[2019-09-16] MEDS: PRILOSEC PO SCH (21:17)
[2019-09-16] MEDS: ZOLOFT PO SCH (21:17)
[2019-09-17] MEDS: DUONEB (A & A) INH SCH ×6 (03:13→22:49)
[2019-09-17] MEDS: SOLU-MEDROL IV SCH ×3 (03:38→20:46)
--- NOTE | 2019-09-17 04:52 | PULMONOLOGY PROGRESS NOTE ---
DATE: 09/16/2019 INTERIM HISTORY: The patient underwent CT-guided biopsy today. The radiologist reported he had increased shortness of breath. During the procedure with onset of pulmonary edema noted on abdomen and pelvis scans. He received Lasix, and reports his breathing has improved through the day. OBJECTIVE: Vital Signs: The patient has been afebrile for the last 24 hours. Blood pressure 151/59, heart rate 86, respiratory rate 17, and oxygen saturation 97%. HEENT: Pupils are equal and reactive. Oropharynx appears clear. Neck: Supple. Lungs: Chest reveals scattered wheezing bilaterally. Cardiac: S1-S2. Abdomen: Soft. Extremities: Reveal trace edema. LABORATORIES: Chest x-ray this evening reveals decreasing pulmonary edema. IMPRESSION: 1. A 78-year-old with radiographic staging consistent with stage IV lung cancer. 2. Chronic obstructive pulmonary disease exacerbation. 3. Pulmonary edema. 4. Elevated CEA level. PLAN: 1. Continue steroids and treatment for COPD. 2. Take 1 additional Lasix this evening. 3. Await biopsy report. 4. Agree with oncology evaluation. cc: Yehuda Alaniz MD
[2019-09-17 06:03] LABS: HEMOGLOBIN 13.5 g/dL (14.0-18.0); MCH 28.2 PG (27-31); MCHC 32.9 g/dL (33-37); MCV 85.8 FL (81-99); RBC 4.78 XMIL (4.7-6.1); RDW 14.2 % (11.5-14.5); WBC 8.46 X1000 (4.8-10.8)
[2019-09-17] MEDS: HUMALOG SUBQ SCH ×4 (06:35→20:46)
[2019-09-17 06:49] LABS: ALBUMIN 3.7 g/dL (3.5-5.0); CALCIUM 9.1 mg/dL (8.8-10.2); CREATININE 1.4 mg/dL (0.7-1.2); PHOSPHORUS 3.6 mg/dL (2.7-4.5); POTASSIUM 3.8 mmol/L (3.5-5.1)
[2019-09-17] MEDS: SYMBICORT 160/4.5 MICROGM INHALER INH SCH ×2 (07:39→19:20)
--- NOTE | 2019-09-17 09:09 | Diag Imaging Result Doc PS360 ---
EXAM: CHEST-2 VIEWS INDICATION: hypoxia TECHNIQUE: 2 views COMPARISON: 09/16/2019 FINDINGS: The mild interstitial thickening seen previously has improved. The vague reticular nodular density at the right upper lung zone is grossly unchanged. No new consolidation is identified. Cardiac silhouette is stable. IMPRESSION: Improvement in the mild interstitial thickening seen previously. Electronically signed by Nino Perez 09/17/2019 9:07 AM
[2019-09-17] MEDS: CATAPRES PO SCH ×3 (09:19→20:45)
[2019-09-17] MEDS: LANTUS INSULIN SUBQ SCH (09:19)
[2019-09-17] MEDS: MIRALAX PO SCH (15:03)
--- NOTE | 2019-09-17 15:37 | PROGRESS NOTE ---
DATE: 09/17/2019 SUBJECTIVE: This morning Mr. Finn refers to be doing okay, not as short of breath as yesterday. OBJECTIVE: Vital Signs: Blood pressure is 156/87, pulse of 72, respiration is 18, temperature 97.6 degrees. General: Mr. Finn is a 78-year-old gentleman. He is in bed, in no distress. Mucosa is pink and moist. Anicteric. Acyanotic. Neck: Supple. Chest: Air entry is bilaterally reduced, just a few distant wheezing on expiration with prolonged expiratory phase of respiration. There was no crackles. Cardiovascular: Regular rate and rhythm. There is 2/6 systolic murmur in the right second paraspinal intercostal space that radiates to the neck. Gastrointestinal: Abdomen is soft, nontender. Bowel sounds present. Extremities: No pedal edema. Distal pulses present. Central Nervous System: Patient is awake, alert, and oriented. There is no focal neurological deficit. LABORATORY DATA: WBC is 8.46, hemoglobin is 13.5, platelet count of 202,000. Chemistry, sodium is 136, potassium is 3.8, chloride 95, BUN went up to 38, and creatinine went up to 1.4, which I think is because of the diuretic therapy. RADIOGRAPHS: Chest x-ray this morning shows interval improvement in the mid interstitial thickening seen previously. ASSESSMENT: 1. Acute on chronic hypoxemic respiratory failure. 2. Acute bronchospasm after lung biopsy. Chest x-ray revealed pulmonary edema. Subsequent x-ray this morning looks remarkably improved. 3. Right hilar and mediastinal lymph node with numerous dispersed masses in the right lung concerning for malignant neoplasm. The patient is status post CT-guided biopsy. We are pending the official report. I called pathology this afternoon. Preliminary report seems to suggest that it is a poorly differentiated hyperchromic malignancy. They are waiting on the stains. We will await the stains and official report before notifying the patient. 4. Diabetes mellitus with presenting A1c of 7.3. Patient is on insulin regimen. 5. Chronic hypoxemia on home oxygen due to chronic obstructive pulmonary disease. 6. Acute pulmonary edema, improved. 7. Elevated CEA with CT abdomen and pelvis unremarkable for any masses. We will be pending the pathology report to see if it is a primary lung or it is from the colon. 8. Constipation. We are going to start the patient on bowel regimen. PLAN: In general, Mr. Finn looks a lot better. He is breathing much better than yesterday. He is currently just on 3 liters, and he is saturating 98%. I think we can even come down on the flow rate. He is slightly contracted in his lab work because of the diuretic therapy from yesterday. A chest x-ray this morning looks a lot better. We will continue with the current nebulization steroids and antibiotics. If he continues to be stable tomorrow, I think he will be okay to be discharged if it is okay with Pulmonary Medicine. He is going to be following up with Dr. Pina for the official report on the CT-guided lung biopsy. cc: Ryan Fitzpatrick MD
[2019-09-17] MEDS: PRILOSEC PO SCH (20:45)
[2019-09-17] MEDS: ZOLOFT PO SCH (20:45)
[2019-09-17] MEDS: LEVAQUIN 750 MG/D5W 750 MG/150 ML IVPB IV SCH (20:46)
[2019-09-18] MEDS: DUONEB (A & A) INH SCH ×6 (03:05→23:09)
[2019-09-18] MEDS: SOLU-MEDROL IV SCH ×2 (03:19→17:43)
[2019-09-18] MEDS: HUMALOG SUBQ SCH ×4 (06:13→20:50)
[2019-09-18 07:26] LABS: ALBUMIN 3.8 g/dL (3.5-5.0); CALCIUM 8.7 mg/dL (8.8-10.2); CREATININE 1.4 mg/dL (0.7-1.2); PHOSPHORUS 3.3 mg/dL (2.7-4.5); POTASSIUM 4.5 mmol/L (3.5-5.1)
[2019-09-18] MEDS: SYMBICORT 160/4.5 MICROGM INHALER INH SCH ×2 (07:53→19:20)
[2019-09-18] MEDS: MIRALAX PO SCH (08:40)
[2019-09-18] MEDS: CATAPRES PO SCH ×3 (08:40→20:50)
[2019-09-18] MEDS ORDERED: LANTUS INSULIN SUBQ SCH (09:00)
--- NOTE | 2019-09-18 17:23 | HEMO/ONC CONSULTATION ---
DATE: 09/17/2019 REQUESTING PHYSICIAN: Patient seen in consultation at the request of Dr. Fitzpatrick. HISTORY OF PRESENT ILLNESS: Mr. Finn was admitted to [facility] with pneumonia, COPD exacerbation, and sepsis. Imaging during his hospitalization unfortunately showed numerous right- sided lung masses abutting the pleura with right-sided hilar mediastinal adenopathy and erosion of the 4th rib on 09/15/2019. Subsequent abdomen and pelvis CT 09/16/2019 was negative for a distant metastatic disease. He underwent a CT-guided biopsy yesterday the results of which are pending. He is noted improving breathing since he has been on antibiotics and steroids. He tolerated his procedure well. He denies any current fevers. PAST MEDICAL HISTORY: Notable for COPD, hypertension, diabetes, hyperlipidemia. PAST SURGICAL HISTORY: Tonsillectomy. FAMILY MEDICAL HISTORY: No family history of cancer but his did of pancreatic cancer. SOCIAL HISTORY: He denies current smoking but has a heavy history of smoking in the years prior at over a pack per day for more than 20 years. He lives with his daughter. He uses home O2 at baseline. ALLERGIES: Reviewed per the chart. MEDICATIONS: Reviewed per the chart. REVIEW OF SYSTEMS: Pertinent positives and negatives as per HPI. All other review of systems are negative. PHYSICAL EXAMINATION: Temperature 97.5 degrees, pulse 78, respiratory rate 18, blood pressure 148/75, O2 saturation 97% on 4 L.General: This is a chronically ill-appearing man in no acute distress. He is unaccompanied at the time of consultation. Eyes: Sclerae anicteric. Cardiovascular: Regular rate and rhythm. Normal S1, S2. No murmurs, rubs, or gallops. Pulmonary: Coarse bilateral breath sounds with no wheezes, rales, or rhonchi. Abdomen: Soft, nontender, nondistended with normoactive bowel sounds. Extremities: No clubbing, cyanosis, or edema. Neuro: Alert and oriented x3. No focal deficits. LABS: White count 8.46, hemoglobin 13.5, platelet count 202,000. CEA 331. CT-guided biopsy pending. IMAGIN09/15/2019 CT of the chest shows numerous right-sided lung masses abutting the pleura with right-sided hilar mediastinal adenopathy and a 4th rib lesion. 09/16/2019 CT abdomen and pelvis shows no evidence of distant metastatic disease. ASSESSMENT AND PLAN: 1. Right-sided lung masses: We discussed these are highly suspicious for malignancy. I would suspect non-small cell lung cancer given the elevated CEA and the pattern of spread in his lung. We discussed medical history, prognosis, staging and treatment of non-small cell lung cancer. We discussed the palliative intent of treatment in unresectable disease. We discussed the role of chemo and/or radiation and treatment of stage 3 to 4 non-small cell lung cancer. We discussed goals of care and quality of life, intention of such treatment. He is agreeable to considering treatment as long as the toxicity does not outweigh the benefit. I will see him back in clinic next week to review his biopsy results and plan further therapy. 2. Code Status: The patient wishes to be DNR level 1. Orders were entered to that effect. 3. Chronic obstructive pulmonary disease: Continue O2 support, antibiotics and steroids as you are doing. Reassess at return visit. cc: Yehuda Alaniz MD
[2019-09-18] MEDS: PRILOSEC PO SCH (20:50)
[2019-09-18] MEDS: LEVAQUIN 750 MG/D5W 750 MG/150 ML IVPB IV SCH (20:50)
[2019-09-18] MEDS: ZOLOFT PO SCH (20:50)
[2019-09-18] MEDS: NORVASC PO SCH (20:50)
[2019-09-19] MEDS: DUONEB (A & A) INH SCH ×6 (02:51→22:45)
[2019-09-19] MEDS: HUMALOG SUBQ SCH ×4 (06:13→21:30)
[2019-09-19] MEDS: SOLU-MEDROL IV SCH (06:36)
[2019-09-19] MEDS: SYMBICORT 160/4.5 MICROGM INHALER INH SCH ×2 (07:30→19:26)
[2019-09-19] MEDS: APRESOLINE PO SCH ×3 (09:35→21:30)
[2019-09-19] MEDS: CATAPRES PO SCH ×3 (09:35→17:07)
[2019-09-19] MEDS: LEVAQUIN PO SCH (09:35)
[2019-09-19] MEDS: COREG PO SCH ×2 (09:36→21:30)
[2019-09-19] MEDS: NORVASC PO SCH ×2 (09:36→21:30)
[2019-09-19] MEDS: PREDNISONE PO SCH (09:36)
[2019-09-19] MEDS: MIRALAX PO SCH (09:37)
[2019-09-19] MEDS: LANTUS INSULIN SUBQ SCH (09:37)
--- NOTE | 2019-09-19 09:55 | PROGRESS NOTE ---
DATE: 09/19/2019 SUBJECTIVE: This morning, Mr. Finn refers to be doing a lot better. He says he slept well. He denies any more wheezing or any coughing. OBJECTIVE: Vital signs: Blood pressure is 163/78, pulse of 73, respirations 24, temperature 97.9. General: Mr. Finn is a 78-year-old elderly gentleman. He is in bed, no distress. Mucosa is pink and moist. Anicteric and acyanotic. Neck is supple. Chest: Air entry is bilaterally reduced but no crackles. Cardiovascular: Regular rate and rhythm. There is a 2/6 systolic murmur in the right second intercostal space that radiates to the neck. GI: Abdomen is soft, nontender. Bowel sounds present. Extremities: No pedal edema. 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 There is no focal neurological deficit. The patient's I's and O's show urine output 1250. The patient is currently negative balance of 327. DIAGNOSTIC DATA: No recent imaging studies. ASSESSMENT: 1. Acute on chronic hypoxemic respiratory failure, improved. 2. Acute bronchospasm after lung biopsy, resolved. 3. Right hilar and mediastinal lymph node with numerous spread in the lung, associated with elevated CA, all concerning for malignant neoplasm of the lung. The patient is status post CT- guided biopsy, and we are still awaiting the official report. 4. Diabetes mellitus with presenting A1c of 7.3. The patient is on insulin regimen. 5. Chronic hypoxemia on home oxygen. 6. Acute pulmonary edema, resolved. 7. Constipation, improved. 8. Hypertension. We will continue titrating for better blood pressure control. PLAN: In general, I think Mr. Finn is doing a lot better, has already been evaluated by Oncology and Pulmonary Medicine. His bronchospasm has resolved. We are going to be switching his medications to p.o. We are also going to continue titrating his blood pressure medication for better blood pressure control. He is pending discussion with Social Work about certain supplies at home for his care. Once that is all arranged, we will discharge him hopefully tomorrow. cc: Ryan Fitzpatrick MD
[2019-09-19] MEDS: PRILOSEC PO SCH (21:30)
[2019-09-19] MEDS: ZOLOFT PO SCH (21:30)
[2019-09-20] MEDS: DUONEB (A & A) INH SCH ×3 (03:48→11:17)
[2019-09-20 07:26] LABS: ALBUMIN 3.5 g/dL (3.5-5.0); CALCIUM 8.9 mg/dL (8.8-10.2); CREATININE 1.3 mg/dL (0.7-1.2); PHOSPHORUS 3.7 mg/dL (2.7-4.5); POTASSIUM 4.8 mmol/L (3.5-5.1)
[2019-09-20] MEDS: HUMALOG SUBQ SCH (07:38)
[2019-09-20] MEDS: SYMBICORT 160/4.5 MICROGM INHALER INH SCH (07:56)
[2019-09-20] MEDS: CATAPRES PO SCH (10:15)
[2019-09-20] MEDS: COREG PO SCH (10:15)
[2019-09-20] MEDS: PREDNISONE PO SCH (10:15)
[2019-09-20] MEDS: NORVASC PO SCH (10:15)
[2019-09-20] MEDS: MIRALAX PO SCH (10:15)
[2019-09-20] MEDS: APRESOLINE PO SCH (10:15)
[2019-09-20] MEDS: LEVAQUIN PO SCH (10:15)
[2019-09-20] MEDS: LANTUS INSULIN SUBQ SCH (10:16)
[2019-09-20 12:24] VITALS: BP 112/26
--- NOTE | 2019-09-21 11:05 | DISCHARGE SUMMARY ---
ADMISSION DATE: 09/14/2019 DISCHARGE DATE: 09/20/2019 CONSULTATIONS DURING THIS ADMISSION: 1. Oncology was consulted. The patient was seen by Dr. Pina. 2. Pulmonary Medicine was consulted. The patient was seen by Dr. Alaniz. INVASIVE PROCEDURES DONE DURING THIS ADMISSION: CT-guided lung biopsy was done by Interventional Radiology. ADMISSION DIAGNOSES: 1. Atypical pneumonia. 2. Chronic obstructive pulmonary disease, in exacerbation. 3. Hypertensive urgency. 4. Diabetes mellitus. DISCHARGE DIAGNOSES: 1. Acute on chronic hypoxemic respiratory failure. 2. Acute bronchospasm after lung biopsy. 3. Chronic obstructive pulmonary disease, in exacerbation. 4. Right hilar and mediastinal lymph node with numerous spread in the right lung, associated with elevated CEA. The patient is status post CT-guided lung biopsy. Preliminary result seems to be malignant. We are waiting on the immunochemical stains. 5. Diabetes mellitus with presenting A1c of 7.3. 6. Chronic obstructive pulmonary disease with chronic hypoxemia, on home oxygen. 7. Acute pulmonary edema, resolved. 8. Uncontrolled hypertension, improved during the hospital course. 9. Constipation, resolved. DISCHARGE MEDICATIONS: 1. Sertraline 100 mg p.o. at bedtime. 2. Glimepiride 2 mg b.i.d. 3. Hydralazine 25 mg 3 times per day. 4. Carvedilol 6.25 b.i.d. 5. Levaquin 500 mg p.o. daily. 6. Prednisone 20 mg p.o. daily. 7. Omeprazole 40 mg p.o. at bedtime. 8. Clonidine 0.1 three times per day. 9. Amlodipine 10 mg p.o. daily. 10. Albuterol inhaler every 4 hours p.r.n. 11. Symbicort 1 puff b.i.d. PRESENTING COMPLAINT: Shortness of breath, cough. HISTORY OF PRESENTING COMPLAINT: Mr. Finn is a 78-year-old gentleman who presented to the emergency department because of shortness of breath, has a history of COPD, on home oxygen, hypertension, dyslipidemia, and diabetes. He was found to be wheezing when he presented, and initial imaging studies, including a chest x-ray showed a right upper lobe reticulonodular infiltrate suggestive of atypical pneumonia. He was admitted for medical management. HOSPITAL COURSE: Mr. Finn was admitted to the medical floor, started on respiratory therapy, IV antibiotics, and steroids. A CT scan of the chest with contrast was done, which showed numerous masses throughout the right lung, almost abutting the pleuroesophageus. There was a right hilar mediastinal lymphadenopathy as well. Pulmonary Medicine was consulted. The patient was seen by Dr. Alaniz. A recommendation was given for a CT-guided of the lung mass. The patient underwent CT-guided lung biopsy. At the time of the discharge, the official report is not out yet. However, the preliminary result seems to suggest malignancy. We are still awaiting the immunochemical stains. Mr. Finn did develop acute bronchospasm after the CT-guided biopsy. He received a couple doses of Lasix and nebulization, which improved the bronchospasm. He has been fairly stable throughout the weekend. Social Work and Case Management have also been consulted for equipment needs. This morning, Mr. Finn refers to be doing a whole lot better. The lungs are completely clear. Air entry is, however, reduced, but no wheezing, no crepitations. He is back to 3% of nasal cannula, which is what he normally takes at home. We think he is fairly stable to be discharged. He is going to follow up with Dr. Pian, who saw him here in the hospital, for the pathology report and a plan for the malignancy management. Mr. Finn will also follow up with Pulmonary Medicine (Dr. Alaniz). All the discharge instructions have been discussed with him. He voiced understanding. TIME SPENT: Time spent for discharge is 38 minutes. cc: MD Jessika Baca MD James E. Boyle, MD Dr. Shah
== END 2019-09-20 15:43 | disposition home health service (06) | DRG 843 ==
LOC: ED 11:22 → 2N 15:24 → 3N 09-18 15:55
PROVIDERS: ATTEND Internal Medicine